=== PATIENT | male | born 1975 ===

== ENCOUNTER 2018-08-31 01:22 | Emergency (ER) | payer BC ==
[2018-08-31 01:22] VITALS: BMI 20.9
[2018-08-31 01:55] VITALS: RESP 16; O2SAT 98
[2018-08-31] MEDS ORDERED: Amoxicillin-Clav 875-125 mg Tab PO STA (02:25)
[2018-08-31] MEDS ORDERED: Amoxicillin-Clav 875-125 mg Tab PO ONE (02:34)
--- NOTE | 2018-08-31 02:57 | ED PDOC ---
HPI: General Adult Time Seen by Provider: 08/31/18 02:04 Chief Complaint (Nursing): Anxiety Chief Complaint (Provider): Anxiety History Per: Patient History/Exam Limitations: no limitations Onset/Duration Of Symptoms: Days (x3 days) Additional Complaint(s): Floyd Montes De Oca is a 42 year old male with no past medical history, who presents to the emergency department complaining of insomnia for x3 days and left ear pain for x2 days. Patient states he has been unable to sleep and has been started on trazodone by his PMD but has had no improvement in symptoms. Patient appears depressed to this provider but denies having any history of depression or SI. Family member at bedside reports that patient has been very anxious. PMD: Jv Madrigal Past Medical History Reviewed: Historical Data, Nursing Documentation, Vital Signs Vital Signs: Last Vital Signs Temp 98.1 F 08/31/18 01:51 Pulse 71 08/31/18 01:51 Resp 16 08/31/18 01:51 BP 145/89 08/31/18 01:51 Pulse Ox 98 08/31/18 01:51 - Medical History PMH: No Chronic Diseases Denies: Chronic Kidney Disease - Surgical History Surgical History: Appendectomy - Family History Family History: States: Unknown Family Hx - Social History Current smoker - smoking cessation education provided: No Ex-Smoker (has not smoked in the last 12 months): No Alcohol: None Drugs: Denies - Home Medications Home Medications: Ambulatory Orders Medication Instructions Recorded Cholecalciferol (Vitamin D3) 1 tab PO QWK 10/16/17 [D3-5000 90 mg-5000 Iu] Amoxicillin/Clavulanate [Augmentin 1 tab PO BID #14 tab 08/31/18 875 MG-125 MG] hydrOXYzine Pamoate [Vistaril] 1 - 2 tab PO HS PRN #7 cap 08/31/18 - Allergies Allergies/Adverse Reactions: Allergies Allergy/AdvReac Type Severity Reaction Status Date / Time No Known Allergies Allergy Verified 10/16/17 08:34 Review of Systems ROS Statement: Except As Marked, All Systems Reviewed And Found Negative Constitutional: Positive for: Other (insomnia ) ENT: Positive for: Ear Pain (left ) Psych: Positive for: Anxiety. Negative for: Depression, Suicidal ideation Physical Exam - Reviewed Nursing Documentation Reviewed: Yes Vital Signs Reviewed: Yes - Physical Exam Appears: Positive for: Non-toxic, No Acute Distress Head Exam: Positive for: ATRAUMATIC, NORMOCEPHALIC Skin: Positive for: Normal Color, Warm, Dry Eye Exam: Positive for: Normal appearance, EOMI, PERRL ENT: Positive for: TM Is/Are (Left TM: erythematous and injected ) Neck: Positive for: Normal, Painless ROM, Supple Cardiovascular/Chest: Positive for: Regular Rate, Rhythm. Negative for: Murmur Respiratory: Positive for: Normal Breath Sounds. Negative for: Respiratory Distress Gastrointestinal/Abdominal: Positive for: Normal Exam, Soft. Negative for: Tenderness Back: Positive for: Normal Inspection. Negative for: L CVA Tenderness, R CVA Tenderness, Vertebral Tenderness Extremity: Positive for: Normal ROM. Negative for: Pedal Edema, Deformity Neurological/Psych: Positive for: Awake, Alert, Oriented, Mood/Affect (affect: flat). Negative for: Motor/Sensory Deficits - ECG O2 Sat by Pulse Oximetry: 98 (RA) Pulse Ox Interpretation: Normal Medical Decision Making Medical Decision Making: Time: 020 Impression: 42 year old male presenting with possibly underlying dep ression, dysphoria and left otitis media. Patient will be given Augmentin. Plan: --Crisis evaluation --Amoxicillin 1 tab PO (875 mg - 125 mg ) Time: 325 --Patient was evaluated by box storage worker and is stable for discharge. --Diagnosis: Adjustment disorder, Insomnia, and Otitis Media. Scribe Attestation: Documented by Turner Echeverria, acting as a scribe Dg Joe MD. Provider Scribe Attestation: All medical record entries made by the Scribe were at my direction and personally dictated by me. I have reviewed the chart and agree that the record accurately reflects my personal performance of the history, physical exam, medical decision making, and the department course for this patient. I have also personally directed, reviewed, and agree with the discharge instructions and disposition. Disposition - Clinical Impression Clinical Impression: Insomnia, Adjustment disorder with depressed mood - Disposition Referrals: Jv Madrigal MD [Primary Care Provider] - Disposition: Routine/Home Disposition Time: 03:26 Condition: STABLE Prescriptions: Amoxicillin/Clavulanate [Augmentin 875 MG-125 MG] 1 tab PO BID #14 tab hydrOXYzine Pamoate [Vistaril] 1 - 2 tab PO HS PRN #7 cap PRN Reason: for insomnia Instructions: Insomnia, Adjustment Disorder Forms: [facility] (Iranian), [facility] ED School/Work Excuse Print Language: GRENADIAN
[2018-08-31 04:30] VITALS: BP 132/78; PULSE 68; TEMP 98
== END 2018-08-31 03:35 | disposition home or self-care (01) ==
LOC: H.ER 01:22
DX: F43.21 Adjustment disorder with depressed mood (principal); G47.00 Insomnia, unspecified; H66.92 Otitis media, unspecified, left ear
CPT/HCPCS: 99282; Q0177

== ENCOUNTER 2018-09-01 05:06 | Emergency (ER) | payer BC ==
[2018-09-01 05:06] VITALS: BMI 20.9
--- NOTE | 2018-09-01 07:02 | ED PDOC ---
HPI: Psych/Substance Abuse Time Seen by Provider: 09/01/18 06:08 Chief Complaint (Nursing): Psychiatric Evaluation Chief Complaint (Provider): Psychiatric Evaluation History Per: Patient History/Exam Limitations: no limitations Onset/Duration Of Symptoms: Days (x1) Associated Symptoms: Other (Insomnia) Additional Complaint(s): 42 years old male with history of recently diagnosed anxiety presents to ER for evaluation of insomnia. Patient was here yesterday complaining of insomnia. He reports he has been taking Vistrail but with no relief. Patient denies suicidal or homicidal ideation and auditory hallucinations. PMD: None provided Past Medical History Reviewed: Historical Data, Nursing Documentation, Vital Signs Vital Signs: Last Vital Signs Temp 98.4 F 09/01/18 05:58 Pulse 102 H 09/01/18 05:58 Resp 16 09/01/18 05:58 BP 135/86 09/01/18 05:58 Pulse Ox 98 09/01/18 05:58 - Medical History PMH: Anxiety Denies: Diabetes, Hepatitis, HIV, HTN, Chronic Kidney Disease, Seizures, Sexually Transmitted Disease - Surgical History Surgical History: Appendectomy - Family History Family History: States: Unknown Family Hx - Social History Current smoker - smoking cessation education provided: No Alcohol: None Drugs: Denies - Home Medications Home Medications: Ambulatory Orders Medication Instructions Recorded Cholecalciferol (Vitamin D3) 1 tab PO QWK 10/16/17 [D3-5000 90 mg-5000 Iu] Amoxicillin/Clavulanate [Augmentin 1 tab PO BID #14 tab 08/31/18 875 MG-125 MG] hydrOXYzine Pamoate [Vistaril] 1 - 2 tab PO HS PRN #7 cap 08/31/18 - Allergies Allergies/Adverse Reactions: Allergies Allergy/AdvReac Type Severity Reaction Status Date / Time No Known Allergies Allergy Verified 09/01/18 05:57 Review of Systems ROS Statement: Except As Marked, All Systems Reviewed And Found Negative Constitutional: Positive for: Other (Insomnia) Psych: Negative for: Suicidal ideation (or homicidal), Other (auditory hallucinations) Physical Exam - Reviewed Nursing Documentation Reviewed: Yes Vital Signs Reviewed: Yes - Physical Exam Appears: Positive for: Well, No Acute Distress Head Exam: Positive for: ATRAUMATIC, NORMOCEPHALIC Skin: Positive for: Normal Color, Warm, Dry Eye Exam: Positive for: Normal appearance, EOMI, PERRL ENT: Positive for: TM Is/Are (erythema to left TM) Neck: Positive for: Normal, Painless ROM, Supple Cardiovascular/Chest: Positive for: Regular Rate, Rhythm. Negative for: Murmur Respiratory: Positive for: Normal Breath Sounds. Negative for: Respiratory Distress Gastrointestinal/Abdominal: Positive for: Normal Exam, Soft. Negative for: Tenderness Back: Positive for: Normal Inspection. Negative for: L CVA Tenderness, R CVA Tenderness Extremity: Positive for: Normal ROM. Negative for: Pedal Edema, Deformity Neurological/Psych: Positive for: Awake, Alert, Oriented (x3), Mood/Affect (flat affect) - ECG O2 Sat by Pulse Oximetry: 98 (RA) Pulse Ox Interpretation: Normal Medical Decision Making Medical Decision Making: Time: 658 Initial Impression: 42 y/o male with recurrent insomnia Initial Plan: --Alcohol serum --CMP --Drug screen --Crisis evaluation --Urine dipstick --CBC --Urinalysis 0700 Patient signed out to Dr. Kahn, pending crisis evaluation. Scribe Attestation: Documented by Lenka Ybarra, acting as a scribe for Jonas Joe MD. Provider Scribe Attestation: All medical record entries made by the Scribe were at my direction and personally dictated by me. I have reviewed the chart and agree that the record accurately reflects my personal performance of the history, physical exam, medical decision making, and the department course for this patient. I have also personally directed, reviewed, and agree with the discharge instructions and disposition. Disposition - Clinical Impression Clinical Impression: Insomnia - Patient ED Disposition Is Patient to be Admitted: Transfer of Care - Disposition Disposition: Transfer of Care Disposition Time: 07:00 Condition: FAIR Patient Signed Over To: Isidoro Kahn (pending crisis evaluation)
--- NOTE | 2018-09-01 07:24 | ED PDOC ---
- Laboratory Results Result Diagrams: 09/01/18 07:09 09/01/18 07:09 - ECG O2 Sat by Pulse Oximetry: 98 (RA) Pulse Ox Interpretation: Normal - Progress ED Course And Treament: 3 K. 900: Stable. AAOx3. Pain free. Crisis saw pt. Does not meet criteria for amdit. Medical Decision Making Medical Decision Makin Patient endorsed to me by Dr. Joe, pending crisis evaluation. --------- -------- Scribe Attestation: Documented by Warner Leong, acting as a scribe for Isidoro Kahn MD Provider Scribe Attestation: All medical record entries made by the Scribe were at my direction and personall y dictated by me. I have reviewed the chart and agree that the record accurately reflects my personal performance of the history, physical exam, medical decision making, and the department course for this patient. I have also personally directed, reviewed, and agree with the discharge instructions and disposition. Disposition - Clinical Impression Clinical Impression: Anxiety - POA Present On Arrival: None - Disposition [facility]errals: [facility] - 09/02/18 Disposition: Routine/Home Disposition Time: 09:04 Condition: STABLE Additional Instructions: Return if not better in 3 days. Instructions: Anxiety, Adult (DC)
[2018-09-01 07:30] LABS: BASO % 0.4 % (0.0-2.0); EOS # 0.1 K/uL (0.0-0.7); EOS % 0.7 % (0.0-4.0); HEMOGLOBIN 16.4 g/dL (12.0-18.0); LYMPH # 1.3 K/uL (1.0-4.3); LYMPH % 17.9 % (20.0-40.0); MEAN CELL VOLUME 94.5 fl (80.0-94.0); MEAN CORPUSCULAR HEMOGLOBIN 33.5 pg (27.0-31.0); MEAN CORPUSCULAR HGB CONC 35.4 g/dL (33.0-37.0); MEAN PLATELET VOLUME 7.9 fl (7.2-11.7); MONO # 0.5 K/uL (0.0-0.8); MONO % 6.7 % (0.0-10.0); NEUT # 5.6 K/uL (1.8-7.0); NEUT % 74.3 % (50.0-75.0); RBC 4.89 Mil/uL (4.40-5.90); RED CELL DISTRIBUTION WIDTH 13.1 % (11.5-14.5); WHITE BLOOD COUNT 7.6 K/uL (4.8-10.8)
[2018-09-01 07:41] LABS: ALB/GLOB RATIO 1.3 (1.0-2.1); ALBUMIN 4.8 g/dL (3.5-5.0); ALT/SGPT 39 U/L (21-72); AST/SGOT 29 U/L (17-59); BLOOD UREA NITROGEN 9 mg/dl (9-20); CALCIUM 9.4 mg/dL (8.4-10.2); GFR NON-AFRICAN AMERICAN > 60
[2018-09-01 08:18] LABS: URINE BACTERIA RARE (<OCC); URINE BILIRUBIN NEGATIVE (NEGATIVE); URINE BLOOD NEGATIVE (NEGATIVE); URINE CLARITY SLIGHTY-CLOUDY (Clear); URINE COLOR YELLOW (YELLOW); URINE GLUCOSE (UA) NEG (NEGATIVE); URINE LEUKOCYTE ESTERASE NEG Leu/uL (Negative); URINE PROTEIN NEGATIVE (NEGATIVE); URINE UROBILINOGEN 0.2-1.0 mg/dL (0.2-1.0)
[2018-09-01 08:28] LABS: BARBITURATES, UR NEGATIVE (NEGATIVE); BENZODIAZEPINES, UR NEGATIVE (NEGATIVE); OPIATES, UR NEGATIVE (NEGATIVE); PHENCYCLIDINE, UR NEGATIVE (NEGATIVE)
[2018-09-01 09:28] VITALS: BP 130/82; PULSE 99; RESP 18; TEMP 98; O2SAT 100
== END 2018-09-01 09:20 | disposition home or self-care (01) ==
LOC: H.ER 05:06
DX: G47.00 Insomnia, unspecified (principal); F41.9 Anxiety disorder, unspecified; Z00.8 Encounter for other general examination
CPT/HCPCS: 80053; 81003; 85025; 99283; G0480